=== PATIENT | male | born 1970 | race Caucasian/White ===

== ENCOUNTER 2017-11-15 17:18 | Inpatient (IN) | payer OTHER ==
[2017-11-15] MEDS ORDERED: Acetaminophen 500 MG TAB ONE (18:42)
[2017-11-15] MEDS ORDERED: Ibuprofen 800 MG TAB ONE (20:23)
[2017-11-15 22:43] LABS: ALT (SGPT) 32 U/L (8-55); AST (SGOT) 23 U/L (5-34); Albumin 3.6 g/dL (3.5-5.0); Alkaline Phosphatase 35 U/L (40-150); Anion Gap 14 mmol/L (10-20); BUN (Urea Nitrogen) 36 mg/dL (8.9-20.6); Bilirubin, Total 0.6 mg/dL (0.2-1.2); Calc. Creatinine Clearance 0 mL/min (70-130); Carbon Dioxide 20 mmol/L (22-29); Chloride 106 mmol/L (98-107); Estimated GFR-MDRD 51; Globulin 3.4 g/dL (2.4-3.5); Potassium 4.3 mmol/L (3.5-5.1); Sodium 136 mmol/L (136-145)
[2017-11-15 23:01] LABS: Glucose 58 mg/dL (70-105)
[2017-11-15] MEDS ORDERED: HumaLOG 300 UNITS/3 ML VIAL SC PRN (23:46)
[2017-11-15] MEDS ORDERED: Dextrose 5% in Water 1,000 ML IV PRN (23:46)
[2017-11-15] MEDS ORDERED: Dextrose 50% Abboject 50 ML SYRINGE SLOW IVP PRN (23:46)
[2017-11-16] MEDS: Sodium Chloride 0.9% 1,000 ML IV SCH ×8 (00:04→19:59)
[2017-11-16 00:23] VITALS: BMI 54.1
[2017-11-16 06:25] LABS: ALT (SGPT) 29 U/L (8-55); AST (SGOT) 24 U/L (5-34); Albumin 3.3 g/dL (3.5-5.0); Alkaline Phosphatase 30 U/L (40-150); Anion Gap 14 mmol/L (10-20); BUN (Urea Nitrogen) 35 mg/dL (8.9-20.6); Bilirubin, Total 0.6 mg/dL (0.2-1.2); Calc. Creatinine Clearance 170 mL/min (70-130); Calcium 8.4 mg/dL (7.8-10.44); Carbon Dioxide 18 mmol/L (22-29); Chloride 109 mmol/L (98-107); Estimated GFR-MDRD 62; Globulin 3.2 g/dL (2.4-3.5); Glucose 70 mg/dL (70-105); Potassium 4.5 mmol/L (3.5-5.1); Protein, Total 6.5 g/dL (6.0-8.3); Sodium 136 mmol/L (136-145)
[2017-11-16 06:40] LABS: Band 5 % (5-11); Eosinophils 1 % (0-10); Hemoglobin 15.6 g/dL (14.0-18.0); Lymphocytes 4 % (21-51); MDiff Complete? YES; Macrocytosis SLIGHT = 6-15 cells (100X) (0-5/hpf); Mean Corpuscular HGB CONC 32.2 g/dL (32.0-36.0); Mean Corpuscular Hemoglobin 31.2 pg (27.0-31.0); Mean Corpuscular Volume 96.9 fl (80.0-94.0); Mean Platelet Volume 7.1 fL (7.4-10.4); Metamyelocyte 1 % (0-0); Monocytes 5 % (0-10); Myelocyte 1 % (0-0); Neutrophil 83 % (42-75); PLT Morphology Comment Appears Adequate; Platelet Count 197 thou/uL (130-400); RBC Distribution Width 15.4 % (11.5-14.5); Red Blood Cell (RBC) Count 4.99 mill/uL (4.70-6.10); White Blood Cell (WBC) Count 16.1 thou/uL (4.8-10.8)
--- NOTE | 2017-11-16 07:44 | HP-2 ---
TIME AND DATE OF SERVICE: 2145 hours on 11/15/2017 CODE STATUS: FULL CODE. PRIMARY CARE PHYSICIAN: Mesfin perez. ATTENDING: Job Brown MD RESIDENT: Ethan Tirado MD HISTORIAN: Patient. CHIEF COMPLAINT: Fever and chills. HISTORY OF PRESENT ILLNESS: Celio eubanks is a 47-year-old male with past medical history of urethr al strictures, who presents as transfer from [place] for sepsis secondary to urinary tract infec tion. The patient was driving home to [place] from a cruise and stopped in [place] after exper iencing sudden onset fevers and chills. Symptoms began today, there were no other associated symptom s. He was previously feeling well. The patient states that he chronically has dysuria and increased urinary frequency due to the urethral strictures, so the only way he is ever able to tell if he has a UTI is if he gets fever. In [place], UA showed trace leukocyte esterase, negative nitrite, 31 -50 white blood cells, 1+ bacteria, and no squamous epithelial cells. In the ED, the patient receive d 4 liters of normal saline and vancomycin. PAST MEDICAL HISTORY: 1. Chronic urethral strictures. 2. Hypertension. 3. Type 2 diabetes. 4. Hypogonadism. 5. Hypertriglyceridemia. PAST SURGICAL HISTORY: 1. Urethroplasty. 2. Appendectomy. 3. Tonsillectomy/adenoidectomy. ALLERGIES: No known drug allergies. MEDICATIONS: The patient is unaware of doses of medications, but states he is on; 1. Lisinopril. 2. Diltiazem. 3. Metformin. 4. Actos. 5. Invokana. 6. Depo-Testosterone. 7. . 8. Diltiazem. 9. Fenofibrate. FAMILY HISTORY: The patient endorses maternal and paternal diabetes. SOCIAL HISTORY: The patient denies tobacco use or drug use. Endorses rarely drink any alcohol. 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 REVIEW OF SYSTEMS: Twelve-point review of systems including general, eyes, ENT, respiratory, GI, , skin, musculoskeletal, neuro, and psych were all reviewed and were unremarkable unless otherwise sta ashok in the HPI. PHYSICAL EXAMINATION: VITAL SIGNS: Blood pressure 117/55, pulse 128, respiratory rate 24, temperature 100.8, pulse ox 95% on 2 liters. Current weight 158.7 kilograms. GENERAL: Patient is alert and oriented x3, in no acute distress. Well-developed, well-nourished, mo rbidly obese, appropriately interactive. EYES: Pupils equal, round, reactive to light and accommodation. Extraocular muscles are intact. Co njunctivae within normal limits. ENT: Tympanic membranes pearly victoria without bulging or erythema. Nasal mucosa and oropharynx within normal limits. NECK: Supple, without lymphadenopathy or thyromegaly. CARDIOVASCULAR: Regular rate and rhythm. No murmurs or gallop. RESPIRATORY: Normal effort. No retractions. LUNGS: Clear to auscultation bilaterally. SKIN: Warm and diaphoretic. No cyanosis or lesions. ABDOMEN: Soft, nontender, bowel sounds x4. No mass or distention. EXTREMITIES: No clubbing, cyanosis, or edema. MUSCULOSKELETAL: Structure and tone within normal limits. Full range of motion. NEUROLOGIC: No focal deficits. Sensation within normal limits. PSYCHIATRIC: Appropriate. LABORATORY AND LABORATORY DATA: White blood cell count 16.0, hemoglobin 16.9, hematocrit 51.1, plate lets 268, 79% neutrophils. Sodium 140, potassium 5.6, chloride 101, carbon dioxide 26, BUN 36, creat inine 1.5, GFR 49.7, glucose of 144, calcium 9.5, total protein 8.1, albumin 3.9, AST 44, ALT 36, alk johanny phosphatase 52, total bilirubin 0.4, lactic acid 2.4 in [place] and 1.9 in [facility]. UA in [place] was positive for trace leukocyte esterase, negative nitrites, 3-5 red blood cells , 31-50 white blood cells, 1+ bacteria, and no squamous epithelial cells. EKG showed sinus tachycard ia. ASSESSMENT AND PLAN: A 47-year-old male with 1-day history of fever and chills with past medical his tory of urethral strictures. 1. Sepsis secondary to urinary tract infection. Admit to tele. Blood and urine cultures. The janie ent has received 3 liters of normal saline boluses. Patient will receive a total of 5 liters of norm al saline and started on intravenous maintenance fluids at 190 mL an hour. Vancomycin and Rocephin. Strict I's and O's. We will monitor blood pressures and trend lactic acid. We will also recheck CB Cs. 2. Type 2 diabetes mellitus. Accu-Cheks a.c. and at bedtime and sliding scale insulin at this time. We will consider starting home medications once stable and once we have had medication reconciliati on. 3. Acute kidney injury versus chronic kidney disease. BUN and creatinine ratio greater than 20. It is likely due to hypovolemia/sepsis. We will continue fluid resuscitation and trend GFR. 4. Leukocytosis, likely secondary to #1 trend. Blood and urine cultures. 5. Hyperkalemia, has resolved. Initial potassium was 5.6, it is now down to 4.3. 6. Hypertension. Home medications at this time. 7. Hyperlipidemia. Hold medications until patient is stabilized. 8. Code status: FULL CODE. 9. Obstructive sleep apnea, clarify if patient uses CPAP in order if needed. 10. Diet: Consistent carbohydrate diet. DISPOSITION AND LENGTH OF HOSPITAL STAY: 2-3 days. Symptomatic medication will be provided. History and physical exam as well as management discussed with Dr. Brown.
[2017-11-16] MEDS: Enoxaparin Sodium 40 MG/0.4 ML SYRINGE SC SCH (09:06)
--- NOTE | 2017-11-16 09:11 | PDOC.FM ---
- Subjective Subjective: CC: can't breath without my CPAP HPI: Patient denies fever, urinary symptoms, or flank pain. States he had difficulty sleeping last night because he did not have his CPAP. - Objective MAR Reviewed: Yes Vital Signs & Weight: Vital Signs (12 hours) Temp Pulse Resp BP Pulse Ox 11/16/17 07:05 98.3 F 110 H 20 116/63 99 11/16/17 03:30 97.8 F 100 22 H 139/68 98 11/16/17 01:00 97.8 F 100 22 H 98 11/16/17 00:15 97.9 F 94 22 H 92/48 L 98 Weight Weight 166.468 kg Result Diagrams: 11/16/17 05:48 11/16/17 05:48 EKG Reviewed by me: Yes (SR rate 100-110) <Hammad Joshua - Last Filed: 11/16/17 09:10> - Objective Vital Signs & Weight: Vital Signs (12 hours) Temp Pulse Resp BP Pulse Ox 11/16/17 11:04 99.2 F 118 H 20 113/68 98 11/16/17 08:00 98.3 F 110 H 20 99 11/16/17 07:05 98.3 F 110 H 20 116/63 99 Weight Weight 166.468 kg I&O: 11/15/17 11/16/17 11/17/17 06:59 06:59 06:59 Intake Total 600 Balance 600 Result Diagrams: 11/16/17 05:48 11/16/17 05:48 <Job Brown - Last Filed: 11/16/17 15:39> Phys Exam - Physical Examination Constitutional: NAD ill appearing HEENT: moist MMs, oral pharynx no lesions Respiratory: no wheezing, clear to auscultation bilateral Cardiovascular: RRR, no significant murmur Gastrointestinal: soft, non-tender no CVA tenderness Neurological: non-focal, moves all 4 limbs Psychiatric: normal affect, A&O x 3 <Hammad Joshua - Last Filed: 11/16/17 09:10> Dx/Plan (1) Sepsis Code(s): A41.9 - SEPSIS, UNSPECIFIED ORGANISM Status: Acute QualifierTitle: Sepsis type: sepsis due to unspecified organism Qualified Code(s): A41.9 - Sepsis, unspecified organism Plan: received 5L fluid bolus and is receiving maintenance fluids. BP improved but still tachycardic. continue vanc and rocephin until VSS - will call [place] [facility] and check on status of urine culture (2) UTI (urinary tract infection) Status: Acute QualifierTitle: Urinary tract infection type: acute cystitis Hematuria presence: without hematuria Qualified Code(s): N30.00 - Acute cystitis without hematuria Plan: see plan for sepsis (3) Chronic urethral stricture Code(s): N35.9 - URETHRAL STRICTURE, UNSPECIFIED Status: Acute Plan: has seen urololgy outpatient and does not appear interested in additional evaluation - will consider consultation if symptoms do not improve (4) CKD (chronic kidney disease) Code(s): N18.9 - CHRONIC KIDNEY DISEASE, UNSPECIFIED Status: Acute QualifierTitle: Chronic kidney disease stage: unspecified stage Qualified Code(s): N18.9 - Chronic kidney disease, unspecified Plan: unsure of baseline kidney function but likely has some component of CKD - continue IV fluids and continue to monitor (5) Diabetes Code(s): E11.9 - TYPE 2 DIABETES MELLITUS WITHOUT COMPLICATIONS Status: Acute QualifierTitle: Diabetes mellitus type: type 2 Diabetes mellitus complication status: with kidney complications Diabetes mellitus complication detail: with chronic kidney disease Diabetes mellitus termite technician insulin use: unspecified [facility] insulin use status Chronic kidney disease stage: unspecified stage Qualified Code(s): E11.22 - Type 2 diabetes mellitus with diabetic chronic kidney disease Plan: patient does not know home medications - will perform medication reconciliation today (6) HTN (hypertension) Code(s): I10 - ESSENTIAL (PRIMARY) HYPERTENSION Status: Acute QualifierTitle: Hypertension type: essential hypertension Qualified Code( s): I10 - Essential (primary) hypertension Plan: Med rec BP improved. <Hammad Joshua - Last Filed: 11/16/17 09:10> Attending Addendum - Attending Addendum I personally evaluated the patient and discussed the management with Dr. Sandoval. I agree with the History, Examination, Assessment and Plan documented above with any addition or exceptions noted below. Feeling better this morning since admission. See my hand written faculty admission H&P. [facility] <Job Brown - Last Filed: 11/16/17 15:39>
[2017-11-16] MEDS: cefTRIAXone\\ROCEPHIN 2 GM in Sodium Chloride 0.9% 100 ML IVPB SCH (11:43)
[2017-11-16] MEDS ORDERED: Loratadine 10 MG TAB PO PRN (13:37)
[2017-11-16] MEDS ORDERED: Loperamide HCl 2 MG CAP PO PRN (15:01)
[2017-11-16] MEDS ORDERED: metFORMIN 500 MG TAB PO SCH (17:00)
[2017-11-16] MEDS: Lisinopril 20 MG TAB PO SCH (20:01)
[2017-11-16] MEDS ORDERED: Atorvastatin Calcium 40 MG TAB PO SCH (21:00)
[2017-11-17] MEDS: Sodium Chloride 0.9% 1,000 ML IV SCH (03:25)
[2017-11-17 05:52] LABS: #Eosinphils 0.2 thou/uL (0.0-0.7); #Lymphocytes 1.1 thou/uL (1.20-3.40); #Monocytes 1.2 thou/uL (0.11-0.59); #Neutrophils 10.9 thou/uL (1.40-6.50); %Basophils 0.2 % (0.0-1.0); %Eosinophils 1.3 % (0.0-10.0); %Lymphocytes 8.2 % (21.0-51.0); %Monocytes 8.7 % (0.0-10.0); %Neutrophils 81.7 % (42.0-75.0); Hemoglobin 14.8 g/dL (14.0-18.0); Mean Corpuscular HGB CONC 32.2 g/dL (32.0-36.0); Mean Corpuscular Volume 96.3 fl (80.0-94.0); Mean Platelet Volume 6.6 fL (7.4-10.4); Platelet Count 206 thou/uL (130-400); RBC Distribution Width 15.4 % (11.5-14.5); Red Blood Cell (RBC) Count 4.78 mill/uL (4.70-6.10); White Blood Cell (WBC) Count 13.4 thou/uL (4.8-10.8)
[2017-11-17 06:10] LABS: Anion Gap 13 mmol/L (10-20); BUN (Urea Nitrogen) 21 mg/dL (8.9-20.6); Calc. Creatinine Clearance 226 mL/min (70-130); Calcium 8.4 mg/dL (7.8-10.44); Carbon Dioxide 18 mmol/L (22-29); Chloride 106 mmol/L (98-107); Estimated GFR-MDRD 86; Potassium 3.9 mmol/L (3.5-5.1); Sodium 133 mmol/L (136-145)
[2017-11-17 06:15] LABS: Glucose 54 mg/dL (70-105)
--- NOTE | 2017-11-17 07:13 | PDOC.FM ---
Addendum entered and electronically signed by Hammad Joshua MD 11/17/17 12:46 : Residents paged by nursing staff. As patient was preparing to leave, he mentioned to nurse that his right leg had become more tender, swollen, and erythematous. On exam, the patient's right leg has mild increase in swelling when compared to left, is warm to touch, and has tenderness throughout lower leg but worse along the anterior aspect. The swelling and erythema does not travel distally past the ankle or proximally above the level of the tibial tuberosity. A stat venous doppler US has been ordered to evaluate for DVT. Differential also includes acute worsening of chronic lymphedema 2/2 stasis during hospital stay, venous stasis dermatitis, and cellulitis. Given that his vital signs are stable and he has been on broad spectrum abx coverage, cellulitis is less likely. However, if DVT evaluation is negative could consider starting Clindamycin 300 mg Q8Hr to cover for cellulitis in addition to the cipro he is taking for his UTI. Patient is concerned about how long his evaluation will take as his plans to leave this afternoon and he would not have a way to go home. He was informed that the hospital case assistant could help arrange a cab for him to travel to the airport or hotel. Original Note: - Subjective Subjective: CC: feeling better HPI: Patient states he is feeling much better today. Denies orthostatic symptoms. He is requesting to go home today as he has a long drive back to [place]. - Objective MAR Reviewed: Yes Vital Signs & Weight: Vital Signs (12 hours) Temp Pulse Resp BP BP Pulse Ox 11/17/17 03:27 98.8 F 97 18 100/43 L 95 11/16/17 23:49 95 11/16/17 23:43 98.5 F 105 H 20 106/48 L 95 11/16/17 20:01 126/51 L 11/16/17 20:00 99.5 F 120 H 20 96 Weight Weight 166.468 kg I&O: 11/16/17 11/17/17 11/18/17 06:59 06:59 06:59 Intake Total 6204 Output Total 2350 Balance 3854 Result Diagrams: 11/17/17 05:40 11/17/17 05:40 EKG Reviewed by me: Yes (Sinus tach up to 125. ) <Hammad Joshua - Last Filed: 11/17/17 07:12> - Objective Vital Signs & Weight: Vital Signs (12 hours) Temp Pulse Resp BP BP Pulse Ox 11/17/17 11:47 98.4 F 99 20 140/66 98 11/17/17 08:55 124/55 L 11/17/17 08:00 98.2 F 97 20 11/17/17 07:57 98.2 F 97 20 107/58 L 96 Weight Weight 166.468 kg I&O: 11/16/17 11/17/17 11/18/17 06:59 06:59 06:59 Intake Total 6204 240 Output Total 2350 Balance 3854 240 Result Diagrams: 11/17/17 05:40 11/17/17 05:40 <Job Brown - Last Filed: 11/17/17 16:08> Phys Exam - Physical Examination Constitutional: NAD HEENT: moist MMs, sclera anicteric Neck: no nodes Respiratory: no wheezing, clear to auscultation bilateral Cardiovascular: RRR, no significant murmur Gastrointestinal: non-tender, no distention Neurological: non-focal, moves all 4 limbs Psychiatric: normal affect, A&O x 3 <Hammad Joshua - Last Filed: 11/17/17 07:12> Dx/Plan (1) Sepsis Code(s): A41.9 - SEPSIS, UNSPECIFIED ORGANISM Status: Acute QualifierTitle: Sepsis type: sepsis due to unspecified organism Qualified Code(s): A41.9 - Sepsis, unspecified organism Plan: received 5L fluid bolus and is receiving maintenance fluids. tachycardia improved with home meds but BP low. Denies orthostatic symptoms. continue vanc and rocephin. white count trending down. - awaiting [place] [facility] to fax records. Stated it grew Coag + staph. - Pending cultures, could switch to bactrim DS for 10 days outpatient. (2) UTI (urinary tract infection) Status: Acute QualifierTitle: Urinary tract infection type: acute cystitis Hematuria presence: without hematuria Qualified Code(s): N30.00 - Acute cystitis without hematuria Plan: see plan for sepsis (3) Chronic urethral stricture Code(s): N35.9 - URETHRAL STRICTURE, UNSPECIFIED Status: Acute Plan: has seen urololgy outpatient and does not appear interested in additional evaluation - will consider consultation if symptoms do not improve (4) CKD (chronic kidney disease) Code(s): N18.9 - CHRONIC KIDNEY DISEASE, UNSPECIFIED Status: Acute QualifierTitle: Chronic kidney disease stage: unspecified stage Qualified Code(s): N18.9 - Chronic kidney disease, unspecified Plan: creatinine trended down. will stop IV fluids. If he stays overnight, repeat BMP in AM. - if d/c would recommend repeat BMP in 1 week. 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 (6) HTN (hypertension) Code(s): I10 - ESSENTIAL (PRIMARY) HYPERTENSION Status: Acute QualifierTitle: Hypertension type: essential hypertension Qualified Code( s): I10 - Essential (primary) hypertension Plan: improved with home medications. now mildly hypotensive but asymptomatic. <Hammad Joshua - Last Filed: 11/17/17 07:12> (1) MRSA (methicillin resistant Staphylococcus aureus) infection Code(s): A49.02 - METHICILLIN RESIS STAPH INFECTION, UNSP SITE Status: Acute <Job Brown - Last Filed: 11/17/17 16:08> Attending Addendum - Attending Addendum I personally evaluated the patient and discussed the management with Dr. Joshua. I agree with the History, Examination, Assessment and Plan documented above with any addition or exceptions noted below. Urine culture from outside hospital has resulted with 70K-80K MRSA sensitive to most gram + anitbiotics. Will D/C home on Cipro for 10 days. See residents addendum above for noted redness and swelling of lower leg but with Venous doppler negative for DVT. [facility] <Job Brown - Last Filed: 11/17/17 16:08>
[2017-11-17] MEDS: Enoxaparin Sodium 40 MG/0.4 ML SYRINGE SC SCH (08:50)
[2017-11-17] MEDS: Lisinopril 20 MG TAB PO SCH (08:55)
[2017-11-17] MEDS ORDERED: INSULIN DEGLUDEC SC SCH (09:00)
[2017-11-17] MEDS ORDERED: Fenofibrate Nanocrystallized 145 MG TAB PO SCH (09:00)
[2017-11-17] MEDS ORDERED: Aspirin 81 mg Enteric Coated Tablet PO SCH (09:00)
[2017-11-17] MEDS ORDERED: CANAGLIFLOZIN PO SCH (09:00)
[2017-11-17] MEDS ORDERED: Pioglitazone HCl 45 MG TAB PO SCH (09:00)
[2017-11-17 11:47] VITALS: BP 140/66; TEMP 98.4
[2017-11-17] MEDS: cefTRIAXone\\ROCEPHIN 2 GM in Sodium Chloride 0.9% 100 ML IVPB SCH (12:30)
--- NOTE | 2017-11-17 14:34 | ULT ---
VENOUS DOPPLER ULTRASOUND OF THE RIGHT LOWER EXTREMITY. HISTORY: Right lower leg redness and edema. TECHNIQUE: Rachel scale ultrasound with color flow and spectral Doppler imaging of the deep venous system of the r ight lower extremity was performed. FINDINGS: There is good flow, compression, and augmentation noted in the right common femoral, femoral, deep fe moral, popliteal, posterior tibial, and greater saphenous veins. IMPRESSION: No evidence of deep vein thrombosis in the right lower extremity. POS: JOAN
--- NOTE | 2017-11-17 17:42 | DIS-2 ---
DATE OF ADMISSION: 11/15/2017. DATE OF DISCHARGE: 11/17/2017. RESIDENT: Hammad Joshua MD ADMITTING ATTENDING: Job Brown MD DISCHARGE ATTENDING: Job Brown MD CONSULTATIONS: None. PROCEDURES: None. IMAGING: Right lower extremity venous doppler: negative for DVT PERTINENT LABORATORY FINDINGS: White blood cell count at the time of admission 16, trended down to 13.4. Potassium 5.6, trended down to 3.9. Creatinine 1.5, trended down to 0.93. Urinalysis at outside ER positive for white blood cells 31-50, +1 bacteria, no squamous epithelial, trace leukocyte esterase. PERTINENT MICROBIOLOGY FINDINGS: Urine culture positive for methicillin- sensitive Staphylococcus aureus, sensitive to ciprofloxacin and vancomycin. Blood cultures drawn at [facility], negative at the time of discharge. No blood cultures were obtained at the outside ER prior to administration of antibiotics. PRIMARY DIAGNOSES: 1. Sepsis secondary to methicillin-sensitive urinary tract infection. 2. Complicated urinary tract infection. 3. Acute kidney injury while on unknown baseline kidney function. 4. Hyperkalemia. 5. Acute on chronic lower extremity lymphedema, DVT ruled out. SECONDARY DIAGNOSES: 1. Hypertension. 2. Hyperlipidemia. 3. Insulin-dependent diabetes mellitus type 2. 4. Obstructive sleep apnea. 5. Morbid obesity. 6. History of urethral strictures, status post urethral reconstruction surgery. DISCHARGE MEDICATIONS: 1. Aspirin 81 mg daily. 2. Ciprofloxacin 500 mg twice daily to be taken for 10 days. 3. Loratadine 10 mg daily. 4. Lipitor 80 mg at bedtime. 5. Diltiazem 240 mg at bedtime. 6. Invokana 1 tab daily. 7. Glipizide 10 mg daily. 8. Lisinopril 40 mg b.i.d. 9. Metformin 1000 mg b.i.d. 10. Fenofibrate 145 mg daily. 11. Pioglitazone 45 mg daily. 12. Degludec 160 units subcutaneous daily. DISCONTINUED MEDICATIONS: None. 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 He stopped at an ER while traveling home to [place] with new-onset fevers and chills for 1 day. He states he has chronic dysuria and urinary frequency due to urethral strictures. Initial urinalysis as listed above. He was initially hypotensive, but after 5-liter fluid bolus and maintenance fluids, his blood pressure responded well. He was started on Rocephin in the outside ER and was given a dose of vancomycin at the time of admission. On day 1 of hospitalization, the patient claimed to feel better and blood pressure improved; however, he became tachycardic up into the 120s. He was restarted on his home diltiazem and lisinopril, which lowered his blood pressure, but controlled his heart rate. The patient denied orthostatic symptoms. On day of discharge, urine culture from the outside ER was faxed to the hospital and showed methicillin-sensitive Staphylococcus aureus that was sensitive to vancomycin and ciprofloxacin. He was switched to ciprofloxacin and instructed to take the antibiotic for a full 10-day course. He was also instructed to follow up with his primary care provider once he returns to [place]. As the patient was being prepared for discharge, he complained to the nursing staff of worsening right lower extremity edema, erythema, and pain. Exam was concerning for a DVT so an ultrasound was performed and no DVT was found. Upon learning the results of his exam, the patient left the hospital without talking to the primary team. Last recorded vital signs were within normal range. DISPOSITION: Stable. However, he was not re-evaluated by the primary team prior to leaving. DISCHARGE INSTRUCTIONS: 1. Location: Home. 2. Diet: Consistent carbohydrate, heart healthy, low sodium. 3. Activity: As tolerated. FOLLOWUP INSTRUCTIONS: The patient is to follow up with his primary care physician in [place] within 1 week of discharge. He was advised to follow up with his urologist. Less than 30 minutes was spent on this discharge. [facility]
--- NOTE | 2017-12-05 15:25 | EKG ---
Test Reason : Blood Pressure : / mmHG Vent. Rate : 124 BPM Atrial Rate : 124 BPM P-R Int : 148 ms QRS Dur : 080 ms QT Int : 286 ms P-R-T Axes : 037 026 021 degrees QTc Int : 410 ms Sinus tachycardia Otherwise normal ECG Confirmed by MIGUEL SULLIVAN ([id number]), photography editor CELSA JOSÉ ([id number]) on 12/05/2017 3:24:48 PM Referred By: Confirmed By:MIGUEL SULLIVAN
== END 2017-11-17 14:55 | disposition home or self-care (01) | DRG 872 ==
LOC: ERS 17:18 → 2SE 20:27
PROVIDERS: ADMIT Family Medicine; ATTEND Family Medicine
DX: A41.9 Sepsis, unspecified organism (principal); N17.9 Acute kidney failure, unspecified; E87.5 Hyperkalemia; E66.01 Morbid (severe) obesity due to excess calories; N39.0 Urinary tract infection, site not specified; Z68.43 Body mass index [BMI] 50.0-59.9, adult; I12.9 Hypertensive chronic kidney disease with stage 1 through stage 4 chronic kidney disease, or unspecified chronic kidney disease; N18.2 Chronic kidney disease, stage 2 (mild); E11.9 Type 2 diabetes mellitus without complications; E78.5 Hyperlipidemia, unspecified; I89.0 Lymphedema, not elsewhere classified; G47.33 Obstructive sleep apnea (adult) (pediatric); Z79.4 Long term (current) use of insulin; Z79.82 Long term (current) use of aspirin; Z83.3 Family history of diabetes mellitus
CPT/HCPCS: 36415; 36416; 80048; 80053; 83605; 85025; 87040; 93005; 96361; 96365; 96366; A4216; J0696; J1650; J3370; J7050